=== PATIENT | male | born 1950 | race Native Hawaiian/Other Pacific Islander ===

== ENCOUNTER 2019-11-17 01:58 | Emergency (ER) | payer OTHER ==
[~2019-11-17] VITALS: Ht 165.1 cm; Wt 72.6 kg
[2019-11-17 02:06] VITALS: BP 146/85; TEMP 97.5
[2019-11-17] MEDS ORDERED: LIPITOR40 MG PO (02:41)
[2019-11-17] MEDS ORDERED: BENA20TA2 PO (02:41)
[2019-11-17] MEDS ORDERED: AMLODIPINE BESYLATE PO (02:42)
[2019-11-17] MEDS ORDERED: METFORMIN HYD1000 MG PO (02:42)
== END 2019-11-17 02:38 | disposition home or self-care (01) ==
LOC: ED 01:58
DX: R10.33 Periumbilical pain (principal)
CPT/HCPCS: 99281